=== PATIENT | male | born 1950 | race Caucasian/White ===

== ENCOUNTER → 2021-06-07 08:40 | Outpatient (CLI) | payer MEDICARE, SELFPAY ==
--- NOTE | 2021-06-07 08:46 | NM_ITS ---
PROCEDURE: NM BONE SCAN WHOLE BODY CLINICAL INDICATION: RT HIP PAIN COMPARISON: DX XRAY AP PELVIS W/ 1 VIEW HIP from 05/28/2021 FINDINGS: Anterior and posterior images are obtained of the entire body. Patient has had bilateral hip hemiarthroplasty. Outside exams demonstrate bipolar prosthesis with a zone of lucency around the proximal aspect of the femoral stem on the right. Increased activity is present around the entire femoral component the right hip prosthesis. This is nonspecific and could be seen loosening or infection. There is slight increased activity around the acetabular component on the posterior images compared to the left side. There are 2 different types of prosthesis with metal on metal on the right. Photopenic areas present in the femoral head on both sides at the hip prosthesis as expected. No other significant anomalies are apparent. IMPRESSION: Increased activity surrounds the femoral stem of the right hip prosthesis and may be related to loosening of the prosthesis or infection. Dictated by: Alton Brody MD 06/21/2021 08:00 Alton Brody MD in OV 06/21/2021 08:00
== END ==
PROVIDERS: PCP Emergency Medicine; Visit Provider Orthopaedic Surgery
DX: M25.551 Pain in right hip (principal)
CPT/HCPCS: 78306; A9503

== ENCOUNTER → 2021-10-26 18:18 | Outpatient (CLI) | payer MEDICARE, SELFPAY ==
[2021-10-26 19:07] LABS: Basophils # 0.1 K/mm3 (0-0.2); Basophils % 1.2 % (0.1-2.0); Eosinophils # 0.1 K/mm3 (0.0-0.4); Eosinophils % 1.6 % (0.1-12.0); Hematocrit 47.1 % (42.0-52.0); Hemoglobin 15.1 g/dL (14.1-18.0); Lymphocytes # 1.5 K/mm3 (0.7-4.5); Lymphocytes % 28.8 % (10-50); Mean Corpuscular HGB Conc 32.1 g/dL (31.8-35.4); Mean Corpuscular Hemoglobin 31.5 pg (27.0-31.2); Mean Corpuscular Volume 98.2 fl (80-94); Mean Platelet Volume 11.7 fl (7.4-10.4); Monocytes # 0.5 K/mm3 (0.1-1.0); Monocytes % 9.2 % (1.7-9.3); Neutrophils # 3.1 K/mm3 (1.8-7.8); Neutrophils % 59.3 % (37.0-80.0); Platelet Count 207 K/mm3 (142-424); Red Cell Distribution Width 13.8 % (11.5-17.5); White Blood Count 5.3 K/mm3 (4.8-10.8)
[2021-10-26 20:05] LABS: Alanine Aminotransferase 32 U/L (12-78); Albumin Level 4.3 g/dl (3.5-5.0); Albumin/Globulin Ratio 1.4 (1.1-1.8); Alkaline Phosphatase 105 U/L (38-126); Aspartate Amino Transferase 45 U/L (17-59); Bilirubin,Total 0.8 mg/dl (0.2-1.3); Blood Urea Nitrogen 16 mg/dl (9-20); Calcium 9.5 mg/dl (8.4-10.2); Carbon Dioxide 27 mmol/L (22.0-30.0); Chloride 99 mmol/L (98-107); Estimated Glomerular Filt Rate 74 ml/min (>60); GFR (African American) 90 ML/MIN (>60); Glucose 160 mg/dl (74-100); Sodium 135 mmol/L (136-145); Total Protein,Serum 7.3 g/dl (6.3-8.2)
[2021-10-26 20:21] LABS: HCG,Quantitative < 2 mIU/ml (0-5.42)
== END ==
PROVIDERS: Visit Provider Family Medicine
DX: Z01.89 Encounter for other specified special examinations (principal); L40.9 Psoriasis, unspecified; Z79.899 Other long term (current) drug therapy
CPT/HCPCS: 80053; 84702; 85025

== ENCOUNTER → 2021-11-17 07:01 | Outpatient (CLI) | payer MEDICARE, SELFPAY ==
[2021-11-20 06:30] LABS: QuantiFERON-TB Gold Plus Negative (Negative)
== END ==
PROVIDERS: PCP Family Medicine; Visit Provider Family Medicine
DX: L40.9 Psoriasis, unspecified (principal)
CPT/HCPCS: 36415; 86480

== ENCOUNTER → 2022-09-15 06:01 | Outpatient (CLI) | payer MEDICARE, SELFPAY ==
[2022-09-15 07:50] LABS: Basophils # 0.2 K/mm3 (0-0.2); Basophils % 3.1 % (0.1-2.0); Eosinophils # 0.1 K/mm3 (0.0-0.4); Eosinophils % 1.3 % (0.1-12.0); Hematocrit 45.8 % (42.0-52.0); Hemoglobin 14.8 g/dL (14.1-18.0); Lymphocytes # 1.8 K/mm3 (0.7-4.5); Lymphocytes % 34.8 % (10-50); Mean Corpuscular HGB Conc 32.2 g/dL (31.8-35.4); Mean Corpuscular Hemoglobin 32.1 pg (27.0-31.2); Mean Corpuscular Volume 99.5 fl (80-94); Mean Platelet Volume 11.2 fl (7.4-10.4); Monocytes # 0.4 K/mm3 (0.1-1.0); Monocytes % 7.9 % (1.7-9.3); Neutrophils # 2.7 K/mm3 (1.8-7.8); Neutrophils % 52.9 % (37.0-80.0); Platelet Count 206 K/mm3 (142-424); Red Cell Distribution Width 14.2 % (11.5-17.5); White Blood Count 5.1 K/mm3 (4.8-10.8)
[2022-09-15 08:45] LABS: Alanine Aminotransferase 37 U/L (12-78); Albumin Level 4.5 g/dl (3.5-5.0); Albumin/Globulin Ratio 1.6 (1.1-1.8); Alkaline Phosphatase 102 U/L (38-126); Anion Gap 14.6 mEq/L (5-15); Aspartate Amino Transferase 39 U/L (17-59); Bilirubin,Total 0.6 mg/dl (0.2-1.3); Blood Urea Nitrogen 21 mg/dl (9-20); Calcium 9.9 mg/dl (8.4-10.2); Carbon Dioxide 28 mmol/L (22.0-30.0); Chloride 102 mmol/L (98-107); Estimated Glomerular Filt Rate 66 ml/min (>60); GFR (African American) 80 ML/MIN (>60); Globulin 2.9 g/dL (1.3-3.2); Glucose 122 mg/dl (74-100); Potassium 4.6 mmoL/L (3.5-5.1); Sodium 140 mmol/L (136-145); Total Protein,Serum 7.4 g/dl (6.3-8.2)
[2022-09-17 19:08] LABS: QuantiFERON-TB Gold Plus Negative (Negative)
== END ==
PROVIDERS: PCP Family Medicine; Visit Provider Dermatology
DX: L40.8 Other psoriasis (principal)
CPT/HCPCS: 36415; 80053; 85025; 86480

== ENCOUNTER 2022-10-13 10:00 | Outpatient (RCR) | payer MEDICARE, SELFPAY ==
--- NOTE | 2022-10-05 12:26 | HMH.OTOPEV ---
OT Inpatient Evaluation Rehab OT Outpatient Eval Start: 10/05/22 11:46 Freq: Status: Active Protocol: Document 10/05/22 11:56 LOUISJIMMIE (Rec: 10/05/22 12:25 LOUISJIMMIE [id number]) E-signed By Lucie Gomez, OT Outpatient Therapy Subjective History Subjective History 71 year old male referred to skilled OP OT services for R wrist pain. Patient exhibit s/ s of CTS. No nerve conduction test has been completed at this date. Patient stated the pain has been going on 3-4 months with no relief. Patient has tried a brace with no relief. Patient stated having numbness, tingling and aching pain in the right wrist that distrubs his sleep nightly. Chief Complaint Pain,Weakness,Decreased Hemmer Automatic Strength Symptom Type Ache,Numbness,Tingling Symptoms Relieved By Nothing Symptoms Aggravated By Physical Activity Prior Functional Limitations None Current Functional Limitations Reaching,Recreation Activity Symptom Description Constant and Continuous Level of pain today (0-10) 0 Pain scale - at its best (0-10) 0 Pain scale - at its worst (0-10) 9 Wrist/Hand Eval Wrist Range of Motion Right Wrist Extension Active Range of Motion ( 25 degrees) Wrist Flexion Active Range of Motion ( 60 degrees) Wrist Radial Deviation Active Range of 20 Motion (degrees) Wrist Ulnar Deviation Active Range of 30 Motion (degrees) Forearm Supination Active Range of 90 Motion (degrees) Forearm Pronation Active Range of Motion 90 (degrees) Hemmer Automatic/Pinch Strength Right Hemmer Automatic Strength Measurement (lbs) 45 Left Hemmer Automatic Strength Measurement (lbs) 110 OT Outpatient Assessment Impairments Problems/Impairments Impaired Range of Motion, Impaired Strength,Subjective C /O Pain Prognosis Rehab Potential Good Clinical Impression Consistent with Diagnosis Yes Short Term Goals Number of Weeks 2 Increase Range of Motion Yes: AROM of R UE wrist flex: 65; ext: 35 Increase Strength Yes: Improve R laborer concrete paving strength: 55# Decrease Subjective C/O Pain Yes: 7/10 pain at worst Patient to be Ind w/ HEP Yes: PROM Patient to be Ind w/ Advanced HEP Yes: Strengthening Front Desk Clerk G
== END 2022-10-13 10:05 | disposition home or self-care (01) ==
LOC: OT 10:00
PROVIDERS: PCP Family Medicine; Visit Provider Family Medicine
DX: G56.01 Carpal tunnel syndrome, right upper limb (principal)
CPT/HCPCS: 97010; 97014; 97035; 97140; 97165; G0283

== ENCOUNTER → 2022-10-27 09:18 | Outpatient (CLI) | payer MEDICARE, SELFPAY ==
--- NOTE | 2022-10-27 09:25 | XR_ITS ---
FINAL REPORT CLINICAL HISTORY: wrist pain FINDINGS: 3 views of the right wrist were obtained. There is no acute fracture or dislocation. There is mild degenerative change along the radial aspect of the wrist. There is no soft tissue abnormality. IMPRESSION: Mild degenerative change along the radial aspect of the wrist. Reviewed, Interpreted and Dictated by Wilfred Mcmahan III, MD Transcribed by Scooby Diaz Authenticated and [facility]
== END ==
PROVIDERS: PCP Family Medicine; Visit Provider Orthopaedic Surgery
DX: M25.531 Pain in right wrist (principal)
CPT/HCPCS: 73110

== ENCOUNTER → 2022-11-28 06:46 | Outpatient (CLI) | payer MEDICARE, SELFPAY ==
[2022-11-28 07:03] LABS: Microscopic, Urine URINE MICROSCOPIC (MICROSCOPIC)
[2022-11-28 07:16] LABS: Appearance,Urine CLEAR (Clear); Bilirubin,Urine Negative (Negative); Blood, Urine Negative (Negative); Color,Urine YELLOW (Yellow); Glucose,Urine (UA) Negative (Negative); Ketones,Urine Negative (Negative); Leukocyte Esterase,Urine Negative (Negative); Nitrate,Urine Negative (Negative); PH,Urine 5.5 (5.0-8.5); Protein,Urine Negative (Negative); Urobilinogen,Urine 0.2 EU/dl (0.2)
[2022-11-28 07:20] LABS: Basophils # 0.1 K/mm3 (0-0.2); Basophils % 1.9 % (0.1-2.0); Eosinophils # 0.1 K/mm3 (0.0-0.4); Eosinophils % 2.1 % (0.1-12.0); Hemoglobin 15.2 g/dL (14.1-18.0); Lymphocytes % 34.5 % (10-50); Mean Corpuscular Hemoglobin 30.8 pg (27.0-31.2); Mean Corpuscular Volume 93.5 fl (80-94); Monocytes # 0.4 K/mm3 (0.1-1.0); Monocytes % 6.3 % (1.7-9.3); Neutrophils # 3.3 K/mm3 (1.8-7.8); Neutrophils % 55.2 % (37.0-80.0); Platelet Count 213 K/mm3 (142-424); Red Blood Count 4.92 M/mm3 (4.60-6.20); Red Cell Distribution Width 13.3 % (11.5-17.5); White Blood Count 5.9 K/mm3 (4.8-10.8)
[2022-11-28 07:29] LABS: Bacteria,Urine Trace /lpf
[2022-11-28 07:48] LABS: Chloride 109 mmol/L (98-107)
[2022-11-28 07:49] LABS: Potassium 4.5 mmoL/L (3.5-5.1); Sodium 139 mmol/L (136-145)
[2022-11-28 07:51] LABS: Alanine Aminotransferase 38 U/L (12-78); Alkaline Phosphatase 99 U/L (38-126); Anion Gap 11.5 mEq/L (5-15); Aspartate Amino Transferase 42 U/L (17-59); Bilirubin,Total 0.7 mg/dl (0.2-1.3); Blood Urea Nitrogen 17 mg/dl (9-20); Carbon Dioxide 23 mmol/L (22.0-30.0); Estimated Glomerular Filt Rate 66 ml/min (>60); GFR (African American) 80 ML/MIN (>60)
[2022-11-28 07:52] LABS: Albumin Level 4.5 g/dl (3.5-5.0); Albumin/Globulin Ratio 1.5 (1.1-1.8); Calcium 9.2 mg/dl (8.4-10.2); Globulin 3.1 g/dL (1.3-3.2); Glucose 114 mg/dl (74-100); Total Protein,Serum 7.6 g/dl (6.3-8.2)
== END ==
PROVIDERS: PCP Family Medicine; Visit Provider Orthopaedic Surgery
DX: Z01.818 Encounter for other preprocedural examination (principal); L40.9 Psoriasis, unspecified
CPT/HCPCS: 36415; 80053; 81001; 85025

== ENCOUNTER 2022-12-05 09:37 | Day surgery (SDC) | payer MEDICARE, SELFPAY ==
[2022-12-05] VITALS (8 sets, daily range): BP systolic 119–176; BP diastolic 52–114; PULSE 61–83; RESP 12–18; TEMP 36.2–36.9; O2SAT 95–97; BMI 33.0
--- NOTE | 2022-12-05 11:37 | P.PN_ITS ---
[facility] Disclaimer: The information contained in this section may have been updated after the patient was seen, as this information can be updated by other users. Medical History (Updated 12/05/22 @ 09:58 by Jade Braga RN) Psoriasis Surgical History (Updated 12/05/22 @ 09:58 by Jade Braga RN) History of appendectomy History of left hip replacement History of right hip replacement Family History (Updated 12/05/22 @ 09:58 by Jade Braga RN) Other No significant family history Social History (Updated 12/05/22 @ 09:58 by Jade Braga RN) Smoking Status: Never smoker alcohol intake: never substance use type: denies use current occupational status: retired Travel in the last 8 weeks: None household members: spouse housing: house lives independently: Yes marital status: education level: high school service: Yes status: retired branch: [employer] caffeine: Yes special bettye needs: No agree to transfusion: No do you feel safe at home: Yes victim of physical abuse: No victim of emotional abuse: No victim of sexual abuse: No would you like helpful sources: No [facility] Anesthesia Checklist Patient Identification Patient Identification: Verbal (Name & ) Structural Data Admitted From: Home Planned Operative Procedure/s: r carpal tunnel release Consent for Planned Operative Procedure(s) Verified: Yes NPO Status Verified Time NPO: 00:00 Additional verifications Anesthesia Reactions: No Hx Blood Transfusions: No Blood Transfusion Reaction: No Airway Assessment C-Spine Mobility Assessed: Yes TMJ Mobility Assessed: Yes Dentition: Good Dentition Neurological Assessment Level of Consciousness: Awake, Alert and Appropriate Anesthesia Plan Anesthesia Risk discussed: Yes Anesthesia Plan: Verified ASA Class: II Anesthesia Type: General
--- NOTE | 2022-12-05 11:45 | P.OP_ITS ---
Date of procedure: 12/05/22 Pre-op Diagnosis:: Right carpal tunnel syndrome Post-op Diagnosis:: Same Procedure performed:: Right endoscopic carpal tunnel release Surgeon:: Jabier Jj DO FIELD TALENT QUALIFICATION SPECIALIST:: Nino Verde Anesthesia: LMA Estimated blood loss (mL): 0 Operative findings:: See dictation Operative note:: Patient is identified preoperatively. Right wrist marked with a yes and my initials. Patient taken to operative suite placed upon upon the operating bed with a hand table. General anesthesia ministered airway secured. Right upper extremity prepped and draped in normal sterile fashion. Once prepped and draped final operative timeout performed to identify proper patient procedure and extremity. Everyone involved in the case agree. No counter indications beginning. Did receive preoperative antibiotics. Marking pen was used to make planned incision over the volar wrist crease. Esmarch was used to exsanguinate the extremity. Pneumatic tourniquet inflated to 250 mmHg. Skin knife to used to incise skin careful dissection was taken down to identify the most proximal aspect of the transverse carpal ligament once identified the dilator from the endoscopic carpal tunnel [employer] set was used. This was followed by the right sided sled into the carpal tunnel. Camera was then placed in the carpal tunnel. Transverse carpal ligament was clearly seen superiorly. End of the transverse carpal ligament distally was probed. Undersurface was cleaned with a rasp. And then the hooked blade was used to fully release the transverse carpal ligament. This was directly visualized throughout the pr ocedure. Once fully released camera removed irrigation of wound performed local anesthesia infiltrated half percent Marcaine. Skin closed with nylon stitch sterile hand dressing placed. Patient recommended seizure taken recovery stable condition. Condition: stable Disposition: PACU Complications:: None apparent
--- NOTE | 2022-12-05 11:54 | P.PNANES_ITS ---
[facility] Anesthesia Record Part I Anesthesia Record I Intake, IV Amount: 1,500 Estimated blood loss (mL): 0 Urine output (mL): 0 Blood Pressure: 142/80 SaO2: 96 Pulse Rate: 82 Respiratory Rate: 12 Temperature: 97.5 F Patient is:: Awake and Stable Stable to PACU at:: 11:45
[2022-12-06 09:39] VITALS: BP 142/57; PULSE 79; TEMP 36.9
--- NOTE | 2022-12-06 09:39 | EXP.ANES.II ---
[facility] Anesthesia Record Part II Anesthesia Record Part II Discharge Time: 12:15 Destination: [facility] PACU nurse assessment reviewed?: Yes Patient Condition:: Good Anesthesia Complications:: None Swallowing reflex intact?: Yes Cyanosis?: No Blood Pressure: 142/57 Pulse Rate: 79 Temperature: 98.4 F Mental Status: Alert & Oriented Pain level:: 0 Nausea and/or vomitting:: None Intake, IV Amount: 1,000
== END 2022-12-05 12:52 | disposition home or self-care (01) ==
PROVIDERS: PCP Family Medicine; Visit Provider Orthopaedic Surgery
PROC: (CPT 64721; principal; 2022-12-05 11:15)
DX: G56.01 Carpal tunnel syndrome, right upper limb (principal)
CPT/HCPCS: 64721; 96374; J2405

== ENCOUNTER → 2023-01-23 06:50 | Outpatient (CLI) | payer MEDICARE, SELFPAY ==
[2023-01-23 08:55] LABS: Erythrocyte Sedimentation Rate 10 mm/hr (0-20)
[2023-01-23 09:13] LABS: C-Reactive Protein 2.4 mg/L (0-4)
== END ==
PROVIDERS: PCP Family Medicine; Visit Provider Physician Assistant
DX: M25.551 Pain in right hip (principal); Z96.641 Presence of right artificial hip joint
CPT/HCPCS: 36415; 85651; 86140

== ENCOUNTER → 2023-09-08 07:15 | Outpatient (CLI) | payer MEDICARE, SELFPAY ==
[2023-09-08 07:49] LABS: Basophils # 0.1 K/mm3 (0-0.2); Basophils % 1.2 % (0.1-2.0); Eosinophils # 0.1 K/mm3 (0.0-0.4); Eosinophils % 2.2 % (0.1-12.0); Hematocrit 45.8 % (42.0-52.0); Hemoglobin 15.3 g/dL (14.1-18.0); Lymphocytes % 34.5 % (10-50); Mean Corpuscular HGB Conc 33.3 g/dL (31.8-35.4); Mean Platelet Volume 9.2 fl (7.4-10.4); Monocytes # 0.5 K/mm3 (0.1-1.0); Monocytes % 8.1 % (1.7-9.3); Neutrophils # 3.1 K/mm3 (1.8-7.8); Platelet Count 184 K/mm3 (142-424); Red Blood Count 4.62 M/mm3 (4.60-6.20); Red Cell Distribution Width 13.4 % (11.5-17.5); White Blood Count 5.7 K/mm3 (4.8-10.8)
[2023-09-08 08:30] LABS: Alanine Aminotransferase 40 U/L (12-78); Albumin Level 4.4 g/dl (3.5-5.0); Albumin/Globulin Ratio 1.4 (1.1-1.8); Alkaline Phosphatase 102 U/L (38-126); Anion Gap 14.3 mEq/L (5-15); Aspartate Amino Transferase 51 U/L (17-59); Bilirubin,Total 0.8 mg/dl (0.2-1.3); Blood Urea Nitrogen 18 mg/dl (9-20); Calcium 9.5 mg/dl (8.4-10.2); Carbon Dioxide 26 mmol/L (22.0-30.0); Chloride 103 mmol/L (98-107); Estimated Glomerular Filt Rate 74 ml/min (>60); GFR (African American) 89 ML/MIN (>60); Globulin 3.2 g/dL (1.3-3.2); Glucose 121 mg/dl (74-100); Potassium 4.3 mmoL/L (3.5-5.1); Sodium 139 mmol/L (136-145); Total Protein,Serum 7.6 g/dl (6.3-8.2)
[2023-09-12 15:10] LABS: QuantiFERON-TB Gold Plus Negative (Negative)
== END ==
PROVIDERS: PCP Family Medicine; Visit Provider Dermatology
DX: L40.8 Other psoriasis (principal)
CPT/HCPCS: 36415; 80053; 85025; 86480

== ENCOUNTER 2024-09-04 06:43 | Outpatient (CLI) | payer MEDICARE, SELFPAY ==
[2024-09-04 08:05] LABS: Basophils # 0.1 K/mm3 (0-0.2); Basophils % 1.5 % (0.1-2.0); Eosinophils # 0.1 K/mm3 (0.0-0.4); Eosinophils % 1.4 % (0.1-12.0); Hemoglobin 15.4 g/dL (14.1-18.0); Lymphocytes % 33.5 % (10-50); Mean Corpuscular HGB Conc 38.5 g/dL (31.8-35.4); Mean Corpuscular Hemoglobin 36.5 pg (27.0-31.2); Mean Corpuscular Volume 94.9 fl (80-94); Mean Platelet Volume 10.2 fl (7.4-10.4); Monocytes # 0.5 K/mm3 (0.1-1.0); Monocytes % 8.7 % (1.7-9.3); Neutrophils # 3.3 K/mm3 (1.8-7.8); Neutrophils % 54.9 % (37.0-80.0); Platelet Count 177 K/mm3 (142-424); Red Blood Count 4.21 M/mm3 (4.60-6.20); Red Cell Distribution Width 13.4 % (11.5-17.5); White Blood Count 6.1 K/mm3 (4.8-10.8)
[2024-09-04 08:47] LABS: Alanine Aminotransferase 32 U/L (12-78); Albumin Level 4.2 g/dl (3.5-5.0); Albumin/Globulin Ratio 1.4 (1.1-1.8); Alkaline Phosphatase 76 U/L (38-126); Anion Gap 15.4 mEq/L (5-15); Aspartate Amino Transferase 35 U/L (17-59); Bilirubin,Total 0.9 mg/dl (0.2-1.3); Blood Urea Nitrogen 20 mg/dl (9-20); Calcium 9.2 mg/dl (8.4-10.2); Carbon Dioxide 21 mmol/L (22.0-30.0); Chloride 108 mmol/L (98-107); Estimated Glomerular Filt Rate 60 ml/min (>60); GFR (African American) 72 ML/MIN (>60); Glucose 112 mg/dl (74-100); Potassium 4.4 mmoL/L (3.5-5.1); Sodium 140 mmol/L (136-145); Total Protein,Serum 7.2 g/dl (6.3-8.2)
[2024-09-06 17:19] LABS: QuantiFERON-TB Gold Plus Negative (Negative)
== END 2024-09-04 23:59 | disposition home or self-care (01) ==
LOC: LAB 06:44
PROVIDERS: PCP Family Medicine; Visit Provider Dermatology
DX: L40.8 Other psoriasis (principal)
CPT/HCPCS: 36415; 80053; 85025; 86480

== ENCOUNTER 2025-09-12 06:49 | Outpatient (CLI) | payer MEDICARE, SELFPAY ==
--- OUTSIDE RECORDS SUMMARY | 2025-09-12 06:55 | XMS_ITS | Clinical Summary ---
Author Organization [facility] Address [address] [place] [address] Phone Care Team Providers Care Link Machine Operator Name Role Phone Candice Kothari Unavailable Unavailable Conditions or Problems Problem Name Problem Code Onset Date Status Entry Date Provider Comment Standard Description Annotate GBS B95.1 (ICD-10-CM) 02/26 Active 02/27 W Streptococcus, group B, as the cause of diseases classified elsewhere Diarrhea 25107079 (SNOMED CT) 02/17 Active 02/18 Ange W Diarrhea Back Pain 452012286 (SNOMED CT) 02/17 Active 02/17 Ashish Guerra MD Backache LT HIP SEPTIC ARTHRITIS 711.05 (ICD-9-CM) 02/17 Active 02/17 Ange W Pyogenic arthritis involving pelvic region and thigh Psoriasis 1347019 (SNOMED CT) 02/17 Active 02/17 Ange W Psoriasis LT HIP WOUND INFECTION 682.6 (ICD-9-CM) 02/17 Active 02/17 Ange W Cellulitis and abscess of leg, except foot S/P LT THR Z96.641 (ICD-10-CM) 02/17 Active 02/17 Ange W Presence of right artificial hip joint Elevated C-reactive protein (CRP) R79.82 (ICD-10-CM) 02/17 Active 02/17 Ange W Elevated C-reactive protein (CRP) Elevated sedimentation rate 923903862 (SNOMED CT) 02/17 Active 02/17 Ange W Erythrocyte sedimentation rate above reference range Anemia 579730323 (SNOMED CT) 02/17 Active 02/17 Ange W Anemia Medications Medication Instructions Start Date Stop Date Generic Name ND Provider LEVOFLOXACIN 500 MG TABS 500mg po daily LEVOFLOXACIN [id number] Ashish Guerra MD FORTAZ (IV) 750 mg Iv q 24 hrs I 6197 FORTAZ (IV) Joan Gates RN FORTAZ (IV) 750 mg Iv q 24 hrs I 6197 FORTAZ (IV) Marii Troy RN VANCOMYCIN HCL 1000 MG INTRAVENOUS SOLUTION RECONSTITUTED 1 gm IV Q 12 hrs/OPAT VANCOMYCIN HCL [id number] Marii Troy RN VANCOMYCIN HCL 1000 MG INTRAVENOUS SOLUTION RECONSTITUTED 1 gm IV Q 12 hrs/OPAT VANCOMYCIN HCL [id number] Marii Troy RN TEFLARO 600 MG SOLR 60mg IV Q 12 hrs/OPAT CEFTAROLINE FOSAMIL [id number] Marii Troy RN IBUPROFEN 800 MG TABS IBUPROFEN [id number] Ashish Guerra MD TEFLARO 600 MG SOLR 60mg IV Q 12 hrs/OPAT CEFTAROLINE FOSAMIL [id number] Marii Troy RN Medications Administered No information available. Allergies, Adverse Reactions, Alerts No information available. Results Date Name Value Unit Range Flag Description Clinical Lists Update: Prelo ad SMOK STATUS never smoker Tobacco smoking status Chart Maintenance: lab entry 02/19 ESR 48 mm/h Erythrocyte sedimentation rate by Westergren method Chart Maintenance: Labs 02/25 VANCOMY CHAL 2.4 ug/mL vancomyc in level, serum, trough Office Visit: [id number] MEDS REVIEW Done Documenta tion of current medications (procedure) Chart Maintenance CRPCARDRISK 7.4 mg/L C reactiv e protein [Mass/volume] in Serum or Plasma BILI TOTAL 0.7 mg/dL Bilirubin. total [Mass/volume] in Serum or Plasma ALK PHOS 68 U/L Alkaline bart sphatase [Enzymatic activity/volume] in Blood SGPT (ALT) 16 U/L Alanine aminotransferase [Enzymatic activity/volume] in Serum or Plasma SGOT (AST) 21 U/L Aspartate aminotransferase [Enzymatic activity/volume] in Serum or Plasma CALCIUM 8.7 mg/dL Calcium [Moles/volume] in Serum or Plasma POTASSIUM 4.5 mmol/L Potassium [Moles/volume] in Serum or Plasma SODIUM 140 mmol/L Sodium [Moles/volume] in Serum or Plasma CREATININE 0.3 mg/dL Creatinine [Mass/volume] in Serum or Plasma BUN 20 mg/dL Urea nitrogen [Mass/volume] in Serum or Plasma GLUCOSE SER 91 mg/dL Glucose [Mass/volume] in Serum or Plasma LYMPHS % 27 % Lymphocytes/ 100 leukocytes in Blood by Automated count PMN % 55 % Neutrophils/1 00 leukocytes in Blood by Automated count PLATELETS 249 10*3/mm3 Platelets [#/volume] in Blood by Automated count HCT 38.0 % Hematocrit [V olume Fraction] of Blood by Automated count HGB 12.6 g/dL Hemoglobin [Mass/volume] in Blood RBC 4.12 10*6/mm3 Erythrocytes [#/volume] in Blood by Automated count WBC 5.4 10*3/mm3 Leukocytes [#/volume] in Blood by Automated count Lab Report: CBC w Auto Diff IMM GRANU % 0.1 % 0.0-0.6 N Immature granulocytes/100 leukocytes in Blood BASOPHIL % 1.0 % 0.0-1.0 N Basophils/ 100 leukocytes in Blood by Manual count % EOS AUTO 4.5 % 0.0-3.0 H Eosinophil s/100 leukocytes in Blood by Automated count MONOCYTE BF 9.0 % 0.0-12.0 N monocyte s as percent of body fluid leukocytes LYMPHOCY BF 22.4 % 24.0-44.0 L lymphoc ytes as percent of body fluid leukocytes NEUTROP BF 63.0 % 41.0-71.0 N Neutroph ils/100 leukocytes in Body fluid BASOABSOLMAN 0.07 K/MCL {Cells}/u L 0.00-0.20 N basophils, absolute, manual EOS ABSLT 0.32 10*3/uL 0.10-0.30 H Eosinophi ls [#/volume] in Blood MONOCYTABMAN 0.64 K/MCL {Cells}/u L 0.00-1.00 N monocytes, absolute, manual LYMPHSABSMAN 1.60 K/MCL {Cells}/u L 0.60-4.80 N lymphocytes, absolute, manual ABS NEUTROPH 4.49 10*3/uL 1.50-8.30 N Neutro phils [#/volume] in Blood RDW_ 14.6 11.3-14.5 H RDW, no uni ts MCHC 32.0 G/DL 32.0-36.0 N MCHC [Mass/ volume] by Automated count MCH 29.5 pg 27.0-31.0 N MCH [Entiti c mass] by Automated count MCV 92.1 fL 80.0-99.0 N MCV [Entiti c volume] by Automated count Lab Report: CPK CPK 148 U/L 26-174 N Creatine len se [Enzymatic activity/volume] in Serum or Plasma Lab Report: Comprehensive Me tabolic Panel ANIONGAP 6 mmol/L 3-11 N anion gap, s amy GFRC 80 mL/min/1. 73m2 Glomerular Filtration Rate Calculation ALBUMIN 4.2 g/dL 3.2-4.8 N Albumin [Mass/volume] in Serum or Plasma PROTEIN, TOT 7.7 g/dL 5.7-8.2 N Protein [Mass/volume] in Serum or Plasma CO2 26 mmol/L 20-31 N Carbon dioxid e, total [Moles/volume] in Venous blood CHLORIDE 105 mmol/L 99-109 N Chloride [Moles/volume] in Serum or Plasma Plan of Care Type Date Detail Pending order Change IV antibi otics Pending order C-Diff PCR Pending order Change IV antibi otics Procedures Code Procedure Name Date Entry Date CPT-mila Change IV antibiotics 02/26 CPT-cdpcr C-Diff PCR CPT-mila Change IV antibiotics 02/17 Vital Signs Date Name Value Unit Description BMI (Body Mass Index) 30.94 kg/m2 Bod y Mass Index (Ratio) Body Temperature 98.0 [degF] temperat ure E&M BP Diastolic 82 mm[Hg] blood pressu re, diastolic BP Systolic 134 mm[Hg] blood pressur e, systolic Heart Rate 76 /min pulse rate Height 66 [in_us] height E&M Respiratory Rate 16 /min respirat ory rate E&M Weight Measured 191 [lb_av] weight E& M Weight Measured 191 [lb_av] weight E& M Immunizations No information available. Advance Directives No information available.
--- OUTSIDE RECORDS SUMMARY | 2025-09-12 06:55 | XMS_ITS | Clinical Summary ---
Author Organization [facility] Address [address] [place] [address] Care Team Providers Care Seo Executive Name Role Phone Parker Wooten MD Primary Care Provider [phone] Allergies Active Allergy Reactions Criticality Noted Date Comments Penicillins GI Intolerance Low 08/03/2021 Medications docusate sodium (Colace) 100 MG capsule Take 1 capsule by mouth 2 (Two) Times a Day. 1 Active ondansetron (Zofran) 4 MG tablet Take 1 tablet by mouth Every 8 (Eight) Hours As Needed for Nausea or Vomiting. 1 Active traMADol (ULTRAM) 50 MG tabletIndication s:Status post revision of total hip replacement Take 1 tablet by mouth Every 6 (Six) Hours As Needed for Moderate Pain . 1 Active oxyCODONE (Roxicodone) 5 MG immediate release tabletIndication s:Status post revision of total hip replacement Take 1 tablet by mouth Every 4 (Four) Hours As Needed for Moderate Pain . 0 1 Active Active Problems Problem Noted Date Diagnosed Date Acute blood loss anemia, asymptomatic 08/05/2021 Right hip pain 08/04/2021 Status post revision of total hip replacement, r ight. 08/04/2021 Elevated hemoglobin A1c 08/04/2021 Immunizations Immunization Administration Dates Next Due COVID-19 (MODERNA) 1st,2nd,3rd Dose Monovalent 0 02/24/2021,01/27/2021 Social History Tobacco Use Types Packs/Day Years Used Date Smoking Tobacco: Never Smokeless Tobacco: Never Alcohol Use Standard Drinks/Week Comments Never 0 (1 standard drink = 0.6 oz pur e alcohol) AUDIT-C Answer Date Recorded Q1: How often do you have a drink containing alc ohol? Never 08/03/2021 Average Number of Drinks Not on file Frequency of Binge Drinking Not on file 02/2021 Abuse Screen Answer Date Recorded Unsafe at Home or Work/School Not on file Feels Threatened by Someone? Not on file 06/2023 Does Anyone Keep You from Co ntacting Others or Doint Things Outside the Home? Not on file 08/07/2023 Physical Sign of Abuse Present Not on file 1 Housing Stability Answer Date Recorded Current Living Arrangements Not on file 06/2023 Potentially Unsafe Housing Conditions Not on erika e 08/07/2023 Family and Community Support Answer Rene e Recorded Help with Day-to-Day Activities Not on file 08/07/2023 Lonely or Isolated Not on file 08/07/2023 Employment Answer Date Recorded Do you want help finding or keeping work or a leanna b? Not on file 08/07/2023 Disabilities Answer Date Recorded Concentrating, Remembering, or Making Decisions Difficulty Not on file 08/07/2023 Doing Errands Independently Difficulty Not on fi le 08/07/2023 Education Answer Date Recorded Help with school or training? Not on file Preferred Language Not on file 08/07/2023 Sex and Gender Information Value Date Recorded Sex Assigned at Not on file Legal Sex Male 12:48 PM EDT Gender Identity Not on file Sexual Orientation Not on file Last Filed Vital Signs Vital Sign Reading Time Taken Comments Blood Pressure 124/76 08/05/2021 11:14 AM EDT Pulse 93 08/05/2021 11:14 AM EDT Temperature 36.8 C (98.3 F) 08/05/2021 11:14 AM EDT Respiratory Rate 16 08/05/2021 11:14 AM EDT Oxygen Saturation 95% 08/05/2021 11:14 AM EDT Inhaled Oxygen Concentration - - Weight 93.9 kg (207 lb) 08/04/2021 8:17 AM EDT Height 165.1 cm (5' 5 ) 08/04/2021 8:17 AM EDT Body Mass Index 34.45 08/04/2021 8:17 AM EDT Plan of Treatment Health Maintenance Due Date Last Done Comments TDAP/TD VACCINES (1 - Tdap) 1971 COLOGUARD 1997 COLON CANCER SCREENING 5 YEA R SIGMOIDOSCOPY 1997 COLONOSCOPY 1997 [address]AL CANCER SCREENING 1997 CT COLONOGRAPHY 1997 FECAL OCCULT BLOOD TEST 1997 FIT Testing (1 year) 1997 Pneumococcal Vaccine 50+ (1 of 1 - PCV) 2002 ZOSTER VACCINE (1 of 2) 2002 AAA SCREEN ONCE 2017 ANNUAL PHYSICAL 08/03/2021 HEPATITIS C SCREENING 08/03/2021 INFLUENZA VACCINE 05/30/2025 COVID-19 Vaccine ( season) 2025, 01/27/2021 Medical Devices Implanted Type Area Bombsight Specialist Device Identifier Shelf Expiration Date Model / Serial / Lot Stem Dist Fem/Hip [place] Sts [id number] - [id number] Implanted:Qty : 1 on 08/04/2021 by Ernie Dias MD at [facility] Implant Right: Hip [employer] [id number] 09/30/2030 [id number] / / [id number] Liner Acet Altrx Juju Lip [id number] - [id number] Implanted:Qty : 1 on 08/04/2021 by Ernie Dias MD at [facility] Implant Right: Hip DEPUY 12/28/2023 [id number] / / [id number] Cone Fem Bdy Prox Stdoffst Quinton A 60 - [id number] Implanted:Qty : 1 on 08/04/2021 by Ernie Dias MD at [facility] Implant Right: Hip [employer] [id number] 11/06/2029 [id number] / / [id number] Hd Mod Fem/Hip G7 Biolox/Delta Typ1 Ceram 36mm Min3 - [id number] Implanted:Qty : 1 on 08/04/2021 by Ernie Dias MD at [facility] Implant Right: Hip [employer] [id number] 01/11/2031 [id number] / / [id number] Dev Contrl Tiss Stratafix Spiral Pdo Bidir 1 [id number] - [id number] Implanted:Qty : 2 on 08/04/2021 by Ernie Dias MD at [facility] Implant Right: Hip [employer] [id number] / / Sut Nonabs Maxbraid/Pe Nmbr2 Hc5 38in Wht [id number] - [id number] Implanted:Qty : 2 on 08/04/2021 by Ernie Dias MD at [facility] Implant Right: Hip [employer] [id number] / / Bilateral Hip Implants Additional Health Concerns Infection Onset Date 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 [place] [id number] [facility] MEDICARE ADVANTAGE Advance Directives * CPR (Attempt to Resuscitate) (Latest Code Status on File) Date Activated Date Inactivated Comments 08/04/2021 3:49 PM 08/05/2021 4:37 PM Question Answer Comments Code Status (Patient has no pulse and is not breathing): CPR (Attempt to Resuscitate) Medical Interventions (Patie nt has pulse or is breathing): Full Level Of Support Discussed With: Patient Healthcare Agents on File Name Relationship Healthcare Agent Relationshi p Communication Kathia Dejesus Spouse First Alternate Health Care Surrogate Care Teams Seo Executive Relationship Specialty Start Date End Date Parker Wooten MD [address] [facility] [address] ATTN: SINTIA CASTILLO, [place]CRUZ [address] PCP - General Emergency Medicine 08/03/21
[2025-09-12 07:42] LABS: Hematocrit 44.9 % (42.0-52.0); Hemoglobin 14.6 g/dL (14.1-18.0); Immature Granulocytes % 0.2 %; Mean Corpuscular HGB Conc 32.5 g/dL (31.8-35.4); Mean Corpuscular Hemoglobin 31.1 pg (27.0-31.2); Mean Corpuscular Volume 95.5 fl (80-94); Nucleated Red Blood Cells % 0 %; Platelet Count 196 K/mm3 (142-424); Red Blood Count 4.70 M/mm3 (4.60-6.20); Red Cell Distribution Width-SD 46.9 fL; White Blood Count 8.2 K/mm3 (4.8-10.8)
[2025-09-12 08:41] LABS: Alanine Aminotransferase 42 U/L (12-78); Albumin Level 4.6 g/dl (3.5-5.0); Albumin/Globulin Ratio 1.4 (1.1-1.8); Alkaline Phosphatase 114 U/L (38-126); Anion Gap 13.4 mEq/L (5-15); Aspartate Amino Transferase 51 U/L (17-59); Bilirubin,Total 0.8 mg/dl (0.2-1.3); Blood Urea Nitrogen 18 mg/dl (9-20); Calcium 9.8 mg/dl (8.4-10.2); Carbon Dioxide 26 mmol/L (22.0-30.0); Chloride 102 mmol/L (98-107); Creatinine,Serum 1.10 mg/dl (0.66-1.25); Estimated Glomerular Filt Rate 66 ml/min (>60); GFR (African American) 80 ML/MIN (>60); Globulin 3.3 g/dL (1.3-3.2); Glucose 126 mg/dl (74-100); Potassium 4.4 mmoL/L (3.5-5.1); Sodium 137 mmol/L (136-145); Total Protein,Serum 7.9 g/dl (6.3-8.2)
== END 2025-09-12 23:59 | disposition home or self-care (01) ==
LOC: LAB 06:50
PROVIDERS: PCP Family Medicine; Visit Provider Dermatology
DX: L40.0 Psoriasis vulgaris (principal)
CPT/HCPCS: 36415; 80053; 80074; 85025; 86480